=== PATIENT | male | born 1985 | race Caucasian/White ===

== ENCOUNTER 2021-04-20 00:03 | Emergency (ER) | payer SELFPAY ==
[~2021-04-20] VITALS: Ht 167.6 cm; Wt 71.2 kg
[2021-04-20 00:07] VITALS: BP 145/79
--- NOTE | 2021-04-20 00:07 | NUR ---
TO [facility] WITH [facility] FOR PREBOOK
[2021-04-20 01:45] VITALS: BP 145/79
--- NOTE | 2021-04-20 01:45 | NUR ---
PATIENT BIB [facility]. PATIENT EXAMINED BY DR. AUSTIN. PATIENT MEDICALLY CLEARED AND RELEASED IN CUSTODY IN STABLE CONDITION. ORIGINAL PRE-BOOK FORM GIVEN TO OFFICER VANESSA [id number].
== END 2021-04-20 01:45 ==
LOC: MED 00:03
DX: F10.129 Alcohol abuse with intoxication, unspecified (principal); Z02.89 Encounter for other administrative examinations; V98.8XXA Other specified transport accidents, initial encounter; Y93.89 Activity, other specified; Y92.89 Other specified places as the place of occurrence of the external cause; Y99.8 Other external cause status; Y90.9 Presence of alcohol in blood, level not specified
CPT/HCPCS: 71045; 99283